=== PATIENT | male | born 1960 | race Caucasian/White ===

== ENCOUNTER 2022-11-22 07:22 | Inpatient (IN) ==
--- NOTE | 2022-10-30 12:28 | History & Physical Report ---
Date of Service October 30, 2022 date of surgery: 11/22/22 Procedure: Left Knee Poly Exchange Surgeon: Steven Hall Assessment & Plan (1) Painful total knee replacement, left: Plan: Further care discussed with the patient, his examination is consistent with brok en post of the polyethylene. At this point would recommend left knee arthrotomy with polyethylene exchange, patient would like to be outpatient. Will place on aspirin 81 mg twice a day for 1 month postop DVT prophylaxis. Follow-up in the office 2 weeks postop sooner if he is having any issues. He otherwise has no other questions or concerns The risks and benefits have been discussed including, but not limited to, risk of infection, nerve injury, stiffness, loss of motion, failure to improve, etc. Reasonable outcomes and options of treatment were discussed. An explanation of appropriate alternatives to the procedure that may be advantageous were discussed and their risks and benefits, as well as the risks and benefits of not proceeding with treatment. I offered to answer any additional inquiries concerning the treatment involved. All the patient's questions were answered. The patient is agreeable, understanding of the treatment plan and alternatives, and wishes to proceed with the treatment plan. (2) History of total left knee replacement: History of Present Illness Chief Complaint: Left knee Pain Primary Care Provider: Pepper Mello DO Lg is a pleasant 61-year-old male who presents for preop evaluation prior to left knee poly exchange. He had his knee replaced in 2010 and was doing very well up until about a month ago. He states he bent down to try to tie shoes and felt a loud pop in his knee and since then is having increased pain and instability his left knee. He underwent CT evaluation which did not show any acute hardware loosening or fractures, examination is consistent with broken post of the polyethylene Allergies Allergy/AdvReac Type Severity Reaction Status Date / Time No Known Allergies Allergy Verified 11/23/20 07:16 Home Medications Medication Instructions Recorded Confirmed Type OMEPRAZOLE (PRILOSEC) 20 mg PO DAILY ##0 06/06/10 11/23/20 History aspirin 81 mg tablet 81 mg PO DAILY 11/23/20 11/23/20 History fluoxetine 20 mg capsule 20 mg PO DAILY 11/23/20 11/23/20 History losartan 50 mg tablet 50 mg DAILY 11/23/20 11/23/20 History metoprolol succinate 25 mg 25 mg PO DAILY #0 tabs 11/23/20 11/23/20 Rx tablet,extended release 24 hr multivitamin 1 cap DAILY 11/23/20 11/23/20 History sildenafil 50 mg tablet See Rx Instructions .Route 11/23/20 11/23/20 History .COMPLEX PRN Erectile Dysfunction tamsulosin 0.4 mg capsule 0.4 mg PO DAILY 11/23/20 11/23/20 History Past Med/Surg History Medical History BPH (benign prostatic hyperplasia) HTN (hypertension) SVT (supraventricular tachycardia) Surgical History History of total left knee replacement 10/19/2010-size 6 femur, size 5 tibia, 10 polyethylene and 32 patella Family History Father No problems noted. Social History Smoking Status: Never smoker Hx Alcohol Use: Yes Alcohol type: beer Hx Substance Use: No Preferred Language: Armenian Communication Ability: Effective Dough Cutter Required: No Beliefs That Will Affect Care: None Current Living Situation: Spouse Feels Safe at Home: Yes Assistive Devices: Glasses Review of Systems Review of Systems: All systems reviewed & are unremarkable except as noted in HPI & below Constitutional: no fever, no chills and no sweats Respiratory: no cough and no dyspnea Cardiovascular: no chest pain, no dyspnea and no orthopnea Gastrointestinal: no abdominal pain, no nausea and no vomiting Musculoskeletal: as per Subjective / HPI Physical Exam Constitutional: WD/WN, vitals as above no acute distress Respiratory: normal respiratory effort, lungs clear to auscultation no respiratory distress, no labored breathing and does not use accessory muscles Cardiovascular: RRR, no murmur, no edema Gastrointestinal (Abdomen): normal bowel sounds, soft, nontender, no hepato splenomegaly Musculoskeletal: Left Knee Exam Ambulates with a limp, overall neutral alignment, there is no atrophy warmth or ecchymosis noted, mild effusion, , no crepitation with motion, valgus stress Negative, Varus stress Negative, no Extensor lag, Pain with Active range of motion, also passive painful ROM, Range of motion 0/3/115. No pain with acti ve/passive ROM of ankle. Lower Extremity Strength normal. Lower Extremity Neuro- vascular is normal Results & Data Results & Data Diagnostic Findings 3 views of the left knee show status post left total knee replacement in outside alignment position. No acute findings noted with the implant. CT evaluation also showed no acute findings, no fracture or loosening of the implant
--- NOTE | 2022-11-01 15:53 | PAT Medication Instructions ---
Medication Instructions Date of Service November 01, 2022 Home Medications aspirin 81 mg tablet 81 mg PO QAM fluoxetine 20 mg capsule 20 mg PO QAM losartan 50 mg tablet 50 mg PO QAM multivitamin 1 cap PO QAM sildenafil 50 mg tablet See Rx Instructions .Route .COMPLEX PRN tamsulosin 0.4 mg capsule 0.4 mg PO HS amoxicillin 500 mg tablet 500 mg PO ONCE loratadine 10 mg tablet (Claritin) 10 mg PO DAILY PRN omeprazole 20 mg capsule,delayed release 20 mg PO QAM Continue as directed amoxicillin 500 mg tablet 500 mg PO ONCE ASK your prescriber and surgeon aspirin 81 mg tablet 81 mg PO QAM STOP taking 24 hours before surgery sildenafil 50 mg tablet See Rx Instructions .Route .COMPLEX PRN DO NOT take the morning of surgery losartan 50 mg tablet 50 mg PO QAM multivitamin 1 cap PO QAM loratadine 10 mg tablet (Claritin) 10 mg PO DAILY PRN Take morning of surgery With a small sip of water, OTHERWISE NOTHING TO EAT OR DRINK AFTER MIDNIGHT: fluoxetine 20 mg capsule 20 mg PO QAM omeprazole 20 mg capsule,delayed release 20 mg PO QAM Take evening before surgery tamsulosin 0.4 mg capsule 0.4 mg PO HS Other Notes If you have any questions please call us at [phone] or [phone] or [phone] or [phone]
--- NOTE | 2022-11-07 11:14 | Anesthesiology Consultation ---
Date of Service November 07, 2022 Assessment & Plan (1) Encounter for pre-operative examination: - COVID screening: Per assessment on 11/07: No known COVID-19 positive contacts or current COVID-19 related symptoms. Travel screen negative. Patient vaccinated. At surgeon discretion if preop Covid testing being done. - Cardiology visit (11/08/21): "Patient states he has been doing very well. He denies chest pain, dyspnea orthopnea, PND, lower extremity edema, palpitations, or syncope. He remains very active with no exertional symptoms. Patient had echocardiogram done on 10/20/2020 which showed LVEF of 54%, normal RV size and systolic function, and mild MR. Patient cardiac CT done on 10/12/2020 which showed normal coronary arteries with a calcium score of 0.. Patient doing well today. He denies chest pain, dyspnea, syncope. Patient states that he has improved his diet and has lost weight and he continues to exercise." - Outpatient joint pathway: Per OR booking comments, plan for outpatient joint program. Patient seen at [facility] 11/07. Patient scheduled for Left knee poly exchange- surgery has been deemed appropriate for outpatient pathway from surgeon's perspective. Strong post-op home support. Case reviewed with Dr. Brewster. Patient is an acceptable candidate to proceed as possible outpatient joint pathway pending perioperative course. Surgeon's office arranging post-op home management. Chart Review Chart Review: Acceptable Risk for Surgery and Patient seen in Pre Admission Testing Teaching & Discussion Pre-Anesthesia Teaching/Discussion Notes: Instructed NPO after midnight before surgery,except medications with 15 cc of water. Medication instructions provided according to the [facility] guidelines. History Surgery Operation Date: 11/22/22 10:20 Proposed Procedures p Left Knee Poly Exchange - Steven Hall DO Height/Weight Height: 5 ft 8 in Weight: 101.7 kg Allergies Allergy/AdvReac Type Severity Reaction Status Date / Time No Known Allergies Allergy Verified 11/01/22 14:04 Medications Home Medications Medication Instructions Recorded Confirmed Last Taken aspirin 81 mg tablet 81 mg PO QAM 11/23/20 11/01/22 Unknown fluoxetine 20 mg capsule 20 mg PO QAM 11/23/20 11/01/22 Unknown losartan 50 mg tablet 50 mg PO QAM 11/23/20 11/01/22 Unknown multivitamin 1 cap PO QAM 11/23/20 11/01/22 Unknown sildenafil 50 mg tablet See Rx Instructions .Route 11/23/20 11/01/22 Unknown .COMPLEX PRN Erectile Dysfunction tamsulosin 0.4 mg capsule 0.4 mg PO HS 11/23/20 11/01/22 Unknown amoxicillin 500 mg tablet 500 mg PO ONCE 11/01/22 11/01/22 Unknown loratadine 10 mg tablet (Claritin) 10 mg PO DAILY PRN Allergy Symptoms 11/01/22 11/01/22 Unknown omeprazole 20 mg capsule,delayed 20 mg PO QAM 11/01/22 11/01/22 Unknown release Past Medical History Medical History BPH (benign prostatic hyperplasia) Depression GERD (gastroesophageal reflux disease) History of COVID-19 07/2020- loss of taste and smell, fatigue, aches 11/2021- loss of taste and smell, cough, cold like symptoms; resolved HTN (hypertension) Hx of supraventricular tachycardia 11/2020- no issues since ablation Follows w/ [facility] cardio (Dr Ambrocio) Seasonal allergies Exercise / Class Metabolic Activity II 4-5 Yardwork/Stairs/Walk up hill (one FS (no CP, no SOB)) Past Family History Family History Father No problems noted. Other No family history of adverse response to anesthesia Past Surgical History Surgical History History of cardiac radiofrequency ablation 11/2020 History of total left knee replacement 2010 Hx of arthroscopy of left knee x2 Hx of arthroscopy of right knee Hx of colonoscopy Past Anesthesia History No Hx of Anesthesia Complications and No Family Hx of Anesthesia Complications History of PONV No Hx of PONV and Hx of Motion Sickness (Situational) Social History Smoking Status: Never smoker Do You Dip or Chew Tobacco: No Hx Alcohol Use: Yes Alcohol type: beer alcohol intake frequency: a few times a week Hx Substance Use: No substance use type: does not use Review of Systems Patient denies chest pain, shortness of breath, dyspnea on exertion, fever, chills, cough, wheezing, palpitations. Physical Exam Vital Signs VITALS BP 134/80 P 79 TEMP 98.3 SP02 95%RA RESP 16 PHYSICAL Full cervical extension range of motion. Full TMJ range of motion. TMD 4 finger breaths Mallampati Score 1 Dentition: missing sides/molars, + crown Lungs: clear throughout to auscultation Cardiac: regular rate and rhythm, no murmurs noted Spine: normal Carotid arteries: negative bruit Extremities: no LE edema Lab Results Anesthesia Preop Results Results Anesthesia Widget: WBC 9.19 K/ul (4.8-10.8) 11/07/22 Hgb 16.2 g/dl (14.0-18.0) 11/07/22 Hct 45.9 % (42.0-52.0) 11/07/22 Plt 293 K/uL (130-400) 11/07/22 Na 137 mmol/L (136-145) 11/07/22 K 4.2 mmol/L (3.5-5.1) 11/07/22 Cl 105 mmol/L (98-107) 11/07/22 CO2 26 mmol/L (21-32) 11/07/22 BUN 22 mg/dl (6-23) 11/07/22 Creat 0.94 mg/dl (0.6-1.4) 11/07/22 Glucose Level 110 mg/dl (70-99(Fasting)) H 11/07/22 PT 11.0 Seconds (9.0-12.0) 11/07/22 PTT 27.2 Seconds (21.0-31.0) 11/07/22 INR 1.0 (0.9-1.1) 11/07/22 HA1c 5.6 % (4.5-5.6) 11/07/22 Urine Color Yellow 11/07/22 Urine Appearance Clear (Clear) 11/07/22 Urine pH 5.5 (4.5-7.5) 11/07/22 Urine Specific [place] 1.019 (1.000-1.030) 11/07/22 Urine Protein Negative (Negative) 11/07/22 Urine Glucose (UA) Negative (Negative) 11/07/22 Urine Ketones Negative (Negative) 11/07/22 Urine Blood Negative (Negative) 11/07/22 Urine Nitrite Negative (Negative) 11/07/22 Urine Bilirubin Negative (Negative) 11/07/22 Urine Urobilinogen Negative (Negative) 11/07/22 Urine Leukocyte Esterase Negative (Negative) 11/07/22 Blood Type O Positive 11/07/22 Antibody Screen NEGATIVE 11/07/22 Testing Electrocardiogram Date: 11/07/22 NSR at 70bpm. Chest X-Ray Date: 11/07/22 FINDINGS: Lung volumes are normal. Lungs are clear. There is no pneumothorax or pleural effusion. Cardiac size is normal. Mediastinal contours are normal. There is no evidence for pulmonary edema. IMPRESSION: No acute cardiopulmonary findings. Echocardiogram Date: 10/20/20 LVEF 54%. Mild MR. LV wall motion is normal. Stress Test Date: 03/30/17 Type: exercise Exercise echocardiographic exam is normal without ECG or echo evidence of inducible ischemia. Patient denied chest discomfort reporting only fatigue at peak exercise. 103% MPHR. 8.3 METS. No significant arrhythmias. Baseline echo Doppler study "normal "per report. There is normal RV and LV function with no valvular disease. LVEF 63%. Grade 1 diastolic dysfunction. No significant valvular disease. Other Testing CT Cardiac (10/15/20) Coronary arteries are normal: absense of plaque and no luminal stenosis. Agatston calcium score is 0. COVID-19 Risk Screen Screening Information COVID-19 Screen Date: 11/07/22 Exposure 21 Days Family/Household +COVID Last 21 Days: No Exposure 10 Days Any COVID Exposure Last 10 Days: No Symptoms Last 10 Days Experienced COVID Sx Last 10 Days: No + COVID 0-90 Days COVID + in Last 0-90 Days: No
[~2022-11-22 07:22] MED LIST: ACETAMINOPHEN 500 MG TAB PO SCH; CeleBREX 200 MG CAP PO SCH; FAMOTIDINE 20 MG TAB PO SCH; GABAPENTIN 600 MG DOSE PO SCH; LR 500ML BOLUS, THEN 15ML/HR IV SCH; ROPIVACAINE 0.5% HCL/PF 150 MG, BUPIVACAINE 0.75% MPF 20 ML, EPINEPHrine 30MG/30ML (OR ... INSTIL SCH; TRANEXAMIC ACID 1,000 MG **IV Intra-op IV SCH; TRANEXAMIC ACID 1,000 MG **IV Pre-op IV SCH; ceFAZolin 2000MG 2,000 MG/15 ML SYR IV SCH; dexAMETHasone 4 MG TAB PO SCH
[2022-11-22] MEDS ORDERED: BUPIVACAINE 0.25% PF 30 ML VIAL ONE (07:31)
[2022-11-22] MEDS ORDERED: BUPIVACAINE 0.5 % 5 MG/1 ML PF 10ML VIAL ONE (07:31)
[2022-11-22] MEDS ORDERED: fentaNYL citrate PF 100 MCG/2 ML VIAL ONE (07:59)
[2022-11-22] MEDS ORDERED: MIDAZOLAM HCL 1 MG/ML 2ML VIAL ONE (08:00)
--- NOTE | 2022-11-22 08:26 | History & Physical Bridge Note ---
Date of Service November 22, 2022 History & Physical Bridge Note I have examined the patient, reviewed the History & Physical and in the interval since the performance of the History & Physical I have noted the following changes of clinical significance: no changes noted
[2022-11-22] MEDS ORDERED: ONDANSETRON INJ 2 MG/ML 2 ML VIAL IV PRN ×2 (08:55→12:30)
[2022-11-22] MEDS ORDERED: fentaNYL citrate PF 100 MCG/2 ML VIAL IV PRN (08:55)
[2022-11-22] MEDS ORDERED: ATROPINE SULFATE 0.1 MG/ML 10ML SYR IV PRN (08:55)
[2022-11-22] MEDS ORDERED: ePHEDrine sulfate 50 MG/ML AMP IV PRN (08:55)
[2022-11-22] MEDS ORDERED: PROPOFOL IV EMULSION 10 MG/ML 20 ML VIAL IV ONE (10:04)
[2022-11-22] MEDS ORDERED: ePHEDrine sulfate 50 MG/ML SYR ONE (10:04)
--- NOTE | 2022-11-22 10:24 | Operative Report ---
Post Operative Report Pre & Post Diagnosis Operation Date: 11/22/22 09:20 Pre-Op Diagnosis: Painful left total knee replacement Post-Op Diagnosis: Painful left total knee replacement I identified the patient and participated in the time-out.: Yes Procedure Operation Date: 11/22/22 09:20 Actual Procedures p Left Knee Poly Exchange of the journey 2 [employer] polyupsized to size 13 with post (Left) - Steven Hall DO Surgeon Steven Hall DO Moving Worker DANIEL Sams Estimated Blood Loss 5 Findings Consistent with Post-Op Diagnosis Patient presents with total knee arthroplasty in place no evidence of aseptic loosening but sudden onset of the broken post with the instability ensuing which was confirmed at the time of surgery evidence of broken post sitting in the suprapatellar pouch Specimens Broken poly- Drains Medium bore Hemovac Anesthesia Type MAC Spinal Regional Complications none Disposition Accompanied Patient To Recovery: No Disposition: Recovery Room Indications Patient presents after having had a successful total knee arthroplasty done well for years ago after a sudden onset of instability with a broken post which was verified time surgery as well as clinically with marked instability Description of Procedure After initiation of regional anesthesia the left lower extremity was subsequent prepped and draped in sterile fashion for surgery type utilize #10 blade incision made in the region of the previous incision dissection was carried down to the region of the extensor mechanism medial parapatellar incision was made the patella was subluxed lateralward the broken post that was sitting in the suprapatellar pouch was removed partial synovectomy was performed as it was moderate synovitis the components of the femur and tibia were both inspected and had been excellent condition no loosening or osteolysis was noted subsequently the poly was removed the poly was sterilely tried upsized to a size 13 gave excellent stability in both flexion extension mid flexion subsequently the wounds irrigated cups amounts of sterile saline solution meticulous hemostasis obtained and maintained the poly was replaced with a size 13 x 5 with post without difficulty the wound was irrigated a medium bore Hemovac placed deep into the deep fascia closed with #1 Vicryl and #1 strata fix subcu was closed with 2-0 Vicryl skin was closed with 3-0 Vicryl and a running strata fix the patient sterile compressive dressing placed and was taken to recovery in stable condition please note DANIEL Sams was active participant case participated in both exposure retraction Poly exchange wound closure and was necessary for the case I attest to the content of the Intraoperative Record and any orders documented therein. Any exceptions are noted below.
--- NOTE | 2022-11-22 11:56 | XRay Report ---
LEFT KNEE 2 VIEWS History: Left total knee arthroplasty. Degenerative arthritis. Postop. FINDINGS: The patient is status post a left total knee arthroplasty. The hardware is intact. No fract ure or dislocation. IMPRESSION: Left total knee arthroplasty. No evidence for hardware complication. ACT 112: Negative or not required by law. Electronically signed by: Juan Daniel Singer M.D. 11/22/2022 11:55 AM
[2022-11-22] MEDS ORDERED: SODIUM CHLORIDE 0.9% 1000ML 1,000 ML IV SCH (12:30)
[2022-11-22] MEDS ORDERED: diphenhydrAMINE Capsule 25 MG CAP PO PRN (12:30)
[2022-11-22] MEDS ORDERED: MAGNESIUM HYDROXIDE SUSP 30 ML UDC PO PRN (12:30)
[2022-11-22] MEDS ORDERED: METOCLOPRAMIDE HCL INJ 5 MG/ML 2 ML VIAL IV PRN (12:30)
[2022-11-22] MEDS ORDERED: HYDROmorphone INJ 1 MG/ML SYRINGE IV PRN (12:30)
[2022-11-22] MEDS ORDERED: bisacodyL 10 MG SUPP PR PRN (12:30)
[2022-11-22] MEDS ORDERED: LORATADINE 10 MG TAB PO PRN (12:30)
[2022-11-22] MEDS ORDERED: NALOXONE HCL 0.4 MG/1 ML VIAL/CARP IV PRN (12:30)
[2022-11-22] MEDS: KETOROLAC 30 MG/ML VIAL IV SCH ×2 (13:06→17:58)
[2022-11-22] MEDS: ACETAMINOPHEN 500 MG TAB PO SCH ×2 (13:06→22:10)
--- NOTE | 2022-11-22 14:40 | Anesthesiology Progress Note ---
Date of Service November 22, 2022 Anesthesia Post Procedure Vital Signs Vital Signs: Temp Pulse Pulse Resp BP Pulse Ox O2 Del Method 11/22/22 13:34 36.8 C 92 H 16 126/76 96 Room Air 11/22/22 12:30 36.8 C 76 18 113/79 98 Room Air 11/22/22 12:00 36.7 C 80 20 114/70 97 Room Air 11/22/22 11:50 75 18 136/72 96 Room Air 11/22/22 11:40 74 15 108/69 94 Room Air 11/22/22 11:30 74 16 120/75 98 Room Air 11/22/22 11:20 81 20 106/69 99 Oxymask 11/22/22 11:10 76 16 113/72 100 Oxymask 11/22/22 11:00 36.5 C 87 14 114/57 L 96 Oxymask 11/22/22 07:57 36.6 C 80 20 146/83 H 95 Room Air O2 Flow Rate 11/22/22 13:34 11/22/22 12:30 11/22/22 12:00 11/22/22 11:50 11/22/22 11:40 11/22/22 11:30 11/22/22 11:20 3 11/22/22 11:10 3 11/22/22 11:00 5 11/22/22 07:57 Transfer of Care Handoff Completed per policy Notes Mental Status: alert / awake / arousable and participated in evaluation Patient Amnestic to Procedure: Yes Nausea / Vomiting: adequately controlled Pain: adequately controlled Airway Patency, RR, SpO2: stable & adequate BP & HR: stable & adequate Hydration State: stable & adequate Neuraxial Anesthesia: was administered and sensory block is resolving Anesthetic Complications: no major complications apparent and Pt Satisfied with anesthetic care
[2022-11-22] MEDS: ceFAZolin 2000MG 2,000 MG/15 ML SYR IV SCH (16:52)
[2022-11-22] MEDS: oxyCODONE HCL IR 5 MG TAB (IMMEDIATE RELEASE) PO PRN ×2 (17:14→22:33)
[2022-11-22] MEDS: ASPIRIN 81 MG ECTAB PO SCH (20:21)
[2022-11-22] MEDS: DOCUSATE SODIUM 100 MG CAP PO SCH (20:21)
[2022-11-22] MEDS ORDERED: TAMSULOSIN HCL 0.4 MG CAP PO SCH (21:00)
[2022-11-22] MEDS ORDERED: SENNA 8.6 MG TAB PO SCH (21:00)
[2022-11-23] MEDS: KETOROLAC 30 MG/ML VIAL IV SCH ×2 (00:23→05:45)
[2022-11-23] MEDS: ceFAZolin 2000MG 2,000 MG/15 ML SYR IV SCH (01:16)
[2022-11-23] MEDS: oxyCODONE HCL IR 5 MG TAB (IMMEDIATE RELEASE) PO PRN ×2 (02:45→08:24)
[2022-11-23] MEDS: ACETAMINOPHEN 500 MG TAB PO SCH (06:12)
--- NOTE | 2022-11-23 06:54 | Orthopedic Progress Note ---
Date of Service November 23, 2022 Assessment & Plan (1) Painful total knee replacement, left: Plan: POD #1 s/p Left Knee Poly Exchange PT/OT- plan on d/c home with OPPT dvt proph with MARILOU/SCD/ASA f/u in office in 2 weeks, stable for d/c home after PT today Admission and Anticipated Discharge Date Admission Date: November 22, 2022 Subjective POD #1 s/p Left Knee Poly Exchange Review of Systems Constitutional: no fever, no chills and no sweats Respiratory: no cough and no dyspnea Cardiovascular: no chest pain and no dyspnea Gastrointestinal: no abdominal pain, no nausea and no vomiting Physical Exam Physical Exam: Vital Signs Temp 36.7 C 11/23/22 03:08 Pulse 89 11/23/22 03:08 Resp 18 11/23/22 03:08 BP 127/73 11/23/22 03:08 Pulse Ox 97 11/23/22 03:08 O2 Del Method Room Air 11/23/22 03:08 O2 Flow Rate 3 11/22/22 11:20 Intake & Output 11/22/22 11/22/22 11/23/22 06:59 18:59 06:59 Intake Total 1450 / 2375 925 / 2375 Output Total 705 / 2080 1375 / 2080 Balance 745 / 295 -450 / 295 Weight 100.8 kg Intake: IV 200 / 1125 925 / 1125 Lactated Ringe r's 1,000 ml @ 15 0 / 0 mls/hr IV .Q24 H KETAN Rx#: [id number] Sodium Chlorid e 0.9% 1000ML 1, 925 / 925 000 ml @ 100 m ls/hr IV .Q10H KETAN Rx#:[id number] Tranexamic Aci d / 0.7% NaCl 1, 200 / 200 000 mg In 100 ml @ 600 mls/hr IV TODAY@0600 KETAN Rx#:[id number] IV Perioperative 800 / 800 Oral 450 / 450 Output: Urine 700 / 2075 1375 / 2075 Estimated Blood Loss 5 / 5 Other: Weight Measureme nt Method Standing Scale Musculoskeletal: Left Leg: NVDI, calf SNT, negative melia sign. DP palpable, able to wiggle toes/ankle movement without difficulty. dressing clean dry and intact. Results & Data Vital Signs (Past 12 Hours) Vital Signs Temp Pulse Resp BP BP Pulse Ox O2 Del Method 11/23/22 03:08 36.7 C 89 18 127/73 97 Room Air 11/22/22 22:53 36.8 C 87 16 132/78 97 Room Air 11/22/22 19:00 36.6 C 82 18 141/72 H 96 Room Air Laboratory Results Laboratory Results SARS-CoV-2, RNA, NAAT NEGATIVE (NEGATIVE) 11/22/22 08:00 Impressions Knee X-Ray 11/22/22 11:17 LEFT KNEE 2 VIEWS History: Left total knee arthroplasty. Degenerative arthritis. Postop. FINDINGS: The patient is status post a left total knee arthroplasty. The hardware is intact. No fracture or dislocation. IMPRESSION: Left total knee arthroplasty. No evidence for hardware complication. ACT 112: Negative or not required by law. Electronically signed by: Juan Daniel Singer M.D. 11/22/2022 11:55 AM
--- NOTE | 2022-11-23 06:58 | Discharge Summary ---
Date of Service date of discharge: November 23, 2022 date of admission: 11/22/22 Admission HPI Per Admitting Provider Lg is a pleasant 61-year-old male who presents for preop evaluation prior to left knee poly exchange. He had his knee replaced in 2010 and was doing very well up until about a month ago. He states he bent down to try to tie shoes and felt a loud pop in his knee and since then is having increased pain and instability his left knee. He underwent CT evaluation which did not show any acute hardware loosening or fractures, examination is consistent with broken post of the polyethylene Principal Diagnosis left knee poly exchange Discharge Exam Vital Signs Temp 36.7 C 11/23/22 03:08 Pulse 89 11/23/22 03:08 Resp 18 11/23/22 03:08 BP 127/73 11/23/22 03:08 Pulse Ox 97 11/23/22 03:08 O2 Del Method Room Air 11/23/22 03:08 O2 Flow Rate 3 11/22/22 11:20 Intake & Output 11/22/22 11/22/22 11/23/22 06:59 18:59 06:59 Intake Total 1450 / 2375 925 / 2375 Output Total 705 / 2080 1375 / 2080 Balance 745 / 295 -450 / 295 Weight 100.8 kg Intake: IV 200 / 1125 925 / 1125 Lactated Ringer's 1,000 ml @ 15 0 / 0 mls/hr IV .Q24H KETAN Rx#: [id number] Sodium Chloride 0.9% 1000ML 1, 925 / 925 000 ml @ 100 mls/hr IV .Q10H KETAN Rx#:[id number] Tranexamic Acid / 0.7% NaCl 1, 200 / 200 000 mg In 100 ml @ 600 mls/hr IV TODAY@0600 KETAN Rx#:[id number] IV Perioperative 800 / 800 Oral 450 / 450 Output: Urine 700 / 2075 1375 / 2075 Estimated Blood Loss 5 / 5 Other: Weight Measurement Method Standing Scale Musculoskeletal left knee: NVDI, calf SNT, negative melia sign. DP palpable, able to wiggle toes/ankle movement without difficulty. DANTE dressing clean dry and intact. expected post-operative bruising noted. Discharge Data Allergies Allergy/AdvReac Type Severity Reaction Status Date / Time No Known Allergies Allergy Verified 11/22/22 07:54 Procedures Performed Operation Date: 11/22/22 09:20 Actual Procedures p Left Knee Poly Exchange(Left) - Steven Hall DO Ordered Studies 11/22/22 05:00 US - OR guided needle placemen Routine Hospital Course (1) Painful total knee replacement, left: POD #1 s/p Left Knee Poly Exchange PT/OT- plan on d/c home with OPPT dvt proph with MARILOU/SCD/ASA f/u in office in 2 weeks, stable for d/c home after PT today Total Time Total Time Spent Total Time Spent (In Minutes): 20 Discharge Plan Discharge Items Patient Disposition: Home - Self-Care Reason For Visit: Left Knee Instability Retained Hardware Discharge Diagnosis: left knee poly exchange Activity: Per Instructions section Weightbearing Comment: WBAT with walker Non-emergency contact: Surgeon Call non-emergency contact if: you have any medication questions, your temperature is above 101, your wound has increased redness, your wound has increased drainage and your wound pain has increased Follow-up/Referrals: Lam Jain MD [Primary Care Provider] - Diet: Regular Addtl Attending Provider Instructions: ACTIVITY RECOMMENDATIONS: SELF CARE INSTRUCTIONS AFTER TOTAL KNEE REPLACEMENT A. You may need to continue a physical therapy program after discharge from the hospital. There are several options available to you. Your doctor will assist you in selecting the best one for you. 1. An out-patient facility 2 to 3 times a week for therapy or home therapy. 2. Continue working on all exercises taught to you in the hospital. Your goals should be to increase bending of your knee to 90 degrees and beyond and to fully straighten your knee. B. You may progress at your own pace from walking with a walker or crutches to a cane; then to no assistive devices. C. Make walking a part of your daily routine. Be up as much as comfortable with rest periods throughout the day. Rest with leg elevation is very important. Use the ice wrap frequently for the first 3-4 weeks. D. There are no restrictions on activities. You may ride in a car, shop, participate in hair stylist and all social activities. E. Wear the long elastic stockings (MARILOU hose) 20 hours a day for 2 weeks after surgery. They can be removed several times a day for laundering and for a bath. F. You may shower, no tub baths until cleared by your doctor. SPECIAL CARE INSTRUCTIONS: VERY IMPORTANT TO READ AND REVIEW A. There are a few signs you need to watch for after you are home. Call [facility] if you notice any of the followin. Increased severe knee pain. Some pain is expected especially when you exercise. 2. Increased swelling in your leg or knee; pain or swelling of the calf muscle in either lower leg. 3. Any fluid drainage from the incision. 4. Shortness of breath or chest pain. B. Please call [facility] at if you have any concerns or questions about your operation or recovery. The doctor or his nurse will return your call promptly. C. You must take antibiotics before dental work, bladder, bowel or other surgery. Your doctor will provide you with a permanent care to carry describing this precaution. IMPORTANT: * REMEMBER TO TAKE ASPIRIN, 81 MG, TWICE DAILY FOR 4 WEEKS UNLESS OTHERWISE DIRECTED. THIS IS YOUR BLOOD THINNER. * HIGH RISK PATIENTS MAY BE PRESCRIBED A STRONGER BLOOD THINNER. THIS WILL BE PROVIDED AT DISCHARGE. * CALL IF INCREASED PAIN, REDNESS, DRAINAGE OR FEVER GREATER THAT 101. * WEAR MARILOU HOSE 20 HOURS PER DAY FOR 2 WEEKS. DRESSING INSTRUCTIONS * DANTE Dressing- This is a large suction dressing covering your incision. This will help pull any excess drainage from the wound and allow your incision to heal properly. You may shower with this if you can keep the unit outside of the shower. If any bleeding or leakage is noted please call your doctor's office. This will remain on your incision for 7 days and then should be removed. This can be done yourself or by the home nursing staff if applicable. The entire unit is disposable once removed. Once removed, keep incision clean and dry. If redness or drainage is noted, please call your surgeon. ONCE DANTE IS REMOVED, FOLLOW THESE INSTRUCTIONS: DERMABOND Prineo- This is a mesh tape dressing that is covered with glue. It should remain in place until the incision is properly healed, usually 10-14 days. This dressing is designed to naturally slough off. You may trim the excess mesh tape as it peels off. Incision may be briefly wet in a shower. Dry immediately by blotting with a clean, dry towel. Do not bath or swim until instructed by your doctor. Do not scratch, rub, or pick at the dressing. Do not apply any topical ointments or lotions until dressing is completely removed and/or instructed by your doctor. There may be a small piece of suture material at one end of your incision. Do not pull or trim this. If it is bothersome or catching on clothing, you may cover it with a band-aid. IF INCISION IS LEAKING THROUGH DRESSING, CALL THE OFFICE . FOLLOW UP VISIT: If appointment is not already scheduled: Please call [facility] to make a follow-up appointment for 2 weeks after your surgery at . Pending Studies at Discharge: No Stand-Alone Forms: My [facility], Smoking Cessation Medications and DC Order Prescriptions: New acetaminophen [Tylenol Extra Strength] 500 mg Tablet 1,000 mg PO Q8 21 Days Qty: 126 0RF celecoxib [Celebrex] 200 mg Capsule 200 mg PO BID 30 Days Qty: 60 0RF aspirin 81 mg Tablet,Delayed Release (Dr/Ec) 81 mg PO BID 30 Days Qty: 60 0RF oxycodone 5 mg Tablet 5 - 10 mg PO Q6H PRN (Reason: pain) Qty: 30 0RF docusate sodium 100 mg Capsule 100 mg PO BID 10 Days Qty: 20 0RF cefadroxil 500 mg capsule 500 mg PO BID 14 Days Qty: 28 0RF Continued amoxicillin 500 mg Tablet 500 mg PO ONCE Rx Instructions: PRIOR TO DENTAL APPOINTMENTS omeprazole [Prilosec] 20 mg Capsule,Delayed Release(Dr/Ec) 20 mg PO QAM loratadine [Claritin] 10 mg Tablet 10 mg PO DAILY PRN (Reason: Allergy Symptoms) losartan 50 mg Tablet 50 mg PO QAM sildenafil 50 mg Tablet See Rx Instructions .ROUTE .COMPLEX PRN (Reason: Erectile Dysfunction) Rx Instructions: 50 mg orally as needed 1 hour prior to planned intercourse tamsulosin 0.4 mg Capsule 0.4 mg PO HS multivitamin Capsule 1 cap PO QAM fluoxetine 20 mg Capsule 20 mg PO QAM Discontinued aspirin 81 mg Tablet 81 mg PO QAM Discharge Orders: Discharge Order (Routine); Ordered 11/23/22 Ordered By: Uli Griffith Admission Data Admit Date/Time: 11/22/22 11:17 Attending Provider: Steven Hall Admit Provider: Steven Hall Primary Care Provider: Lam Jain
[2022-11-23 07:27] LABS: Hematocrit (blood only) 42.3 % (42.0-52.0); Hemoglobin 15.1 g/dl (14.0-18.0); Mean Corpuscular Hemoglobin 30.8 pg (25.0-34.0); Mean Corpuscular Hgb Conc 35.7 g/dL (32.0-36.0); Mean Corpuscular Volume 86.3 fL (80.0-100.0); Platelet Count 283 K/uL (130-400); RDW Coefficient of Variation 12.8 % (11.5-14.5); White Blood Count 24.41 K/ul (4.8-10.8)
[2022-11-23 07:45] LABS: BUN Creatinine Ratio 24.7 (10-20); Calcium 8.9 mg/dl (8.6-10.3); Est GFR (African American) 97.3 ml/min; Est GFR (Non-African American) 83.9 ml/min; Potassium 4.2 mmol/L (3.5-5.1)
[2022-11-23] MEDS: ASPIRIN 81 MG ECTAB PO SCH (08:20)
[2022-11-23] MEDS: DOCUSATE SODIUM 100 MG CAP PO SCH (08:21)
[2022-11-23] MEDS ORDERED: FLUoxetine HCL 20 MG CAP PO SCH (09:00)
[2022-11-23] MEDS ORDERED: LOSARTAN POTASSIUM 50 MG TAB PO SCH (09:00)
[2022-11-23] MEDS ORDERED: CeleBREX 200 MG CAP PO SCH (09:00)
[2022-11-23] MEDS ORDERED: MULTIVITAMIN TAB PO SCH (09:00)
== END 2022-11-23 13:00 | disposition home or self-care (01) | DRG 489 ==
LOC: 3E 07:22 → ASU 07:22 → OBSVTOIN 11:17